=== PATIENT | male | born 1965 | race Caucasian/White ===

== ENCOUNTER 2020-01-31 21:44 | Inpatient (IN) | payer MEDICARE, SELFPAY ==
[2020-01-31 21:45] VITALS: PULSE 85; RESP 11; RESP 18; O2SAT 98
--- NOTE | 2020-01-31 21:48 | ED_ITS ---
HPI - Overdose General: Chief Complaint: Overdose Stated Complaint: unresponsive Time Seen by Provider: 01/31/20 21:47 History of Present Illness: HPI Narrative: 54-year-old male presents the emergency room he is intubated upon arrival EMS reports he took a large quantity of metoprolol and possibly clonazepam prior to arrival. He had been seen earlier in the day by EMS and refused care family called again when he became more combative and poorly responsive. EMS reports initially he was somewhat combative and went into arrest they gave him atropine for severe bradycardia which she did not respond well to and then began pacing. They are unable to intubate in place and Igel on arrival he has gurgling breath sounds does not sound as if the igel is completely protecting the airway. complaint: intentional overdose Onset (ago): hour(s) Timing confirmed by: family member Review of Systems General: Reports: ROS unobtainable due to endotracheal tube and ROS unobtainable due to medical condition [facility] PFSH: Medical History Anxiety disorder BPH (benign prostatic hyperplasia) Physical Exam Const: ORIENTATION/CONSCIOUSNESS: Yes oriented to person, Yes oriented to place and Yes oriented to time HENMT: COMMON NORMALS: normocephalic, head/scalp atraumatic, hearing grossly normal bilaterally, external ears normal, EAC's normal, TM's normal bilaterally, nasal mucous membranes and turbinates normal, moist oral mucous membranes and oropharynx normal HEAD & SCALP: normocephalic and atraumatic NOSE: nasal mucous membranes and turbinates normal EXTERNAL EAR: Yes external ears normal EXTERNAL AUDITORY CANAL: EAC's normal TYMPANIC MEMBRANE: TM's normal bilaterally Neck/C-Spine: COMMON NORMALS: full ROM, no lymphadenopathy, supple and no JVD Lymph: LYMPHATIC: no lymphadenopathy noted and no lymphedema noted Resp: COMMON NORMALS: normal respiratory effort, no retractions, no use of accessory muscles and clear to auscultation bilaterally AUSCULTATION: clear to auscultation bilaterally Cardio: COMMON NORMALS: no JVD and no murmurs RATE: bradycardic RHYTHM: abnormal rhythm OTHER: Patient is paced on arrival with a heart rate in the 70s. Peripheral pulses difficult to palpate. GI: COMMON NORMALS: soft to palpation and no hepatosplenomegaly AUSCULTATION: Yes normoactive bowel sounds PALPATION: Yes soft, No tender, No guarding and Yes no hepatosplenomegaly Extremity: COMMON NORMALS: normal to inspection, normal capillary refill, no clubbing, cyanosis or edema, no calf tenderness and no pedal edema Neuro: SENSORIUM/ORIENTATION: Yes oriented to person, Yes oriented to place and Yes oriented to time Skin: COMMON NORMALS: no rashes or lesions noted GENERAL SKIN EXAM: no rashes or lesions noted Course ED course: Initially upon arrival patient was intubated we did give him succinylcholine and etomidate. Patient was given half an amp of atropine with minimal response his blood pressure at that point was 100 systolic we then noted his blood pressure continued to deteriorate. We did turn the pacer off to evaluate his underlying rhythm and he had what appeared to be a complete heart block with a very small QRS complexes. Pacer was again turned on achieve capture and heart rate went up to the 80s. For a brief time he appeared to be overdriving the pacer with a heart rate of 100. But when we turned the pacer off it was evident that his underlying rhythm appeared to be a complete heart block. He was started on levo fed and given push dose pressors of epinephrine with no significant response either in his heart rate or blood pressure. He was then changed to dopamine and epinephrine drip there was still no improvement ultrasound at the bedside showed cardiac activity with a heart rate in the 20s the pacer capture appearing on the monitor was electrical in nature but was not actually functional the heart was not actually responding to the pacer. Cardiology was consulted and came and reviewed the case. By history the patient had essentially been down for over 4-1/2 hours. Early in the process we after he was intubated we turned off the propofol to try to improve the blood pressure and he was not showing any signs of irritation or consciousness. Long discussion with cardiology and with the family and family has opted to treat with supportive cares. Patient on their direction was extubated and the IV medications stopped he bradycardia down into the 30s and his oxygen saturations decreased into the low 80s. He persisted at this condition for an extended period of time and it was decided to place patient in observation for supportive cares in a more private room with the family could be with him. They were agreeable to this discussed Dr. Malin and she will admit the patient. Vital Signs: Vital signs: Vital Signs Temperature 97.8 F 02/02/20 16:04 Pulse Rate 76 02/02/20 13:21 Respiratory Rate 14 02/02/20 16:04 Blood Pressure 122/68 02/02/20 16:04 Pulse Oximetry 98 02/02/20 16:04 MDM - Overdose Lab Data: Labs: Lab Results 01/31/20 01/31/20 01/31/20 Range/Units 21:49 21:49 21:49 WBC 11.9 H (4.0-10.0) 10^3/ uL RBC 3.66 L (4.1-5.3) 10^6/u L Hgb 12.5 (11.7-16.6) g/dL Hct 35.1 L (42.0-52.0) % MCV 95.9 H (80-94) fL MCH 34.2 H (28.0-34.0) pg MCHC 35.6 (30.0-36.0) g/dL RDW 11.6 L (12.1-15.1) % Plt Count 237 (130-400) 10^3/c mm MPV 10.0 (7.4-10.4) fL Neut % (Auto) 75.5 % Lymph % (Auto) 15.5 % [place] % (Auto) 7.3 % Eos % (Auto) 0.3 % Baso % (Auto) 0.4 % Neut # (Auto) 9.0 H (1.8-7.7) 10^3/u L Lymph # (Auto) 1.8 (0.8-4.8) 10^3/u L [place] # (Auto) 0.9 (0.2-0.9) 10^3/u L Eos # (Auto) 0.0 (0.0-0.8) 10^3/u L Baso # (Auto) 0.1 (0.0-0.1) 10^3/u L Nucleated RBC % (a uto) 0 % Nucleated RBCs # 0.0 /100WBC PT (10.5-13.3) SECO NDS INR (0.8-1.2) Specimen Type Sample Site ABG pH (7.35-7.45) ABG pCO2 (35-45) mmHg ABG pO2 (80.0-100.0) mmH g ABG HCO3 (22-26) mmol/L ABG Base Excess (-2.0-2.0) mmol/ L Bashir Test Hematocrit (42-52) % O2 Delivery Device O2 Liters/Min % Vp Client Services ID Sodium 121 L (136-145) mmol/L Potassium 4.2 (3.5-5.1) mmol/L Chloride 81 L (98-107) mmol/L Carbon Dioxide 24 (22-29) mmol/L Anion Gap 20.2 H (5-19) BUN 24 H (6-20) mg/dL Creatinine 2.8 H (0.7-1.2) mg/dL GFR Calculation 23.6 L (90-130) mL/min Glucose 143 H (65-115) mg/dL Calculated Osmolal ity 251 L (285-295) mOsm/k g Calcium 9.3 (8.5-10.5) mg/dL Total Bilirubin 0.2 (0.15-1.2) mg/dL AST 32 (0-40) U/L ALT 18 (0-41) U/L Alkaline Phosphata se 68 (40-130) IU/L Troponin T Baselin e 21 H (0-15) ng/mL Troponin T 120 Min bois [place]te (0-15) ng/mL Delta Troponin T (0-10) ABS# Total Protein 6.0 L (6.6-8.7) g/dL Albumin 3.6 (3.5-5.2) g/dL Globulin 2.4 (1.3-4.6) g/dL TSH 1.15 (0.27-4.20) uIU/ mL Salicylates < 0.3 L (3-10) mg/dL Acetaminophen < 5.0 L (10-30) ug/mL Ethyl Alcohol < 10 (0-10) mg/dL 01/31/20 02/01/20 02/01/20 Range/Units 21:49 04:50 05:30 WBC 18.3 H (4.0-10.0) 10^3/ uL RBC 4.18 (4.1-5.3) 10^6/u L Hgb 14.0 (11.7-16.6) g/dL Hct 40.3 L (42.0-52.0) % MCV 96.4 H (80-94) fL MCH 33.5 (28.0-34.0) pg MCHC 34.7 (30.0-36.0) g/dL RDW 11.7 L (12.1-15.1) % Plt Count 226 (130-400) 10^3/c mm MPV 9.9 (7.4-10.4) fL Neut % (Auto) 82.7 % Lymph % (Auto) 10.7 % [place] % (Auto) 4.7 % Eos % (Auto) 0.1 % Baso % (Auto) 0.4 % Neut # (Auto) 15.1 H (1.8-7.7) 10^3/u L Lymph # (Auto) 2.0 (0.8-4.8) 10^3/u L [place] # (Auto) 0.9 (0.2-0.9) 10^3/u L Eos # (Auto) 0.0 (0.0-0.8) 10^3/u L Baso # (Auto) 0.1 (0.0-0.1) 10^3/u L Nucleated RBC % (a uto) 0 % Nucleated RBCs # 0.0 /100WBC PT 11.70 (10.5-13.3) SECO NDS INR 0.86 (0.8-1.2) Specimen Type Arterial Sample Site Brachial, left ABG pH 7.37 (7.35-7.45) ABG pCO2 35.4 (35-45) mmHg ABG pO2 89.9 (80.0-100.0) mmH g ABG HCO3 20.2 L (22-26) mmol/L ABG Base Excess -4.5 L (-2.0-2.0) mmol/ L Bashir Test Pos Hematocrit 39.6 L (42-52) % O2 Delivery Device Nc O2 Liters/Min 3.0 % Vp Client Services ID [email or web address] Sodium (136-145) mmol/L Potassium (3.5-5.1) mmol/L Chloride (98-107) mmol/L Carbon Dioxide (22-29) mmol/L Anion Gap (5-19) BUN (6-20) mg/dL Creatinine (0.7-1.2) mg/dL GFR Calculation (90-130) mL/min Glucose (65-115) mg/dL Calculated Osmolal ity (285-295) mOsm/k g Calcium (8.5-10.5) mg/dL Total Bilirubin (0.15-1.2) mg/dL AST (0-40) U/L ALT (0-41) U/L Alkaline Phosphata se (40-130) IU/L Troponin T Baselin e (0-15) ng/mL Troponin T 120 Min bois [place]te (0-15) ng/mL Delta Troponin T (0-10) ABS# Total Protein (6.6-8.7) g/dL Albumin (3.5-5.2) g/dL Globulin (1.3-4.6) g/dL TSH (0.27-4.20) uIU/ mL Salicylates (3-10) mg/dL Acetaminophen (10-30) ug/mL Ethyl Alcohol (0-10) mg/dL 02/01/20 02/01/20 02/01/20 Range/Units 05:30 05:30 07:26 WBC (4.0-10.0) 10^3/ uL RBC (4.1-5.3) 10^6/u L Hgb (11.7-16.6) g/dL Hct (42.0-52.0) % MCV (80-94) fL MCH (28.0-34.0) pg MCHC (30.0-36.0) g/dL RDW (12.1-15.1) % Plt Count (130-400) 10^3/c mm MPV (7.4-10.4) fL Neut % (Auto) % Lymph % (Auto) % [place] % (Auto) % Eos % (Auto) % Baso % (Auto) % Neut # (Auto) (1.8-7.7) 10^3/u L Lymph # (Auto) (0.8-4.8) 10^3/u L [place] # (Auto) (0.2-0.9) 10^3/u L Eos # (Auto) (0.0-0.8) 10^3/u L Baso # (Auto) (0.0-0.1) 10^3/u L Nucleated RBC % (a uto) % Nucleated RBCs # /100WBC PT (10.5-13.3) SECO NDS INR (0.8-1.2) Specimen Type Sample Site ABG pH (7.35-7.45) ABG pCO2 (35-45) mmHg ABG pO2 (80.0-100.0) mmH g ABG HCO3 (22-26) mmol/L ABG Base Excess (-2.0-2.0) mmol/ L Bashir Test Hematocrit (42-52) % O2 Delivery Device O2 Liters/Min % Vp Client Services ID Sodium 128 L (136-145) mmol/L Potassium 3.7 (3.5-5.1) mmol/L Chloride 89 L (98-107) mmol/L Carbon Dioxide 21 L (22-29) mmol/L Anion Gap 21.7 H (5-19) BUN 25 H (6-20) mg/dL Creatinine 3.2 H (0.7-1.2) mg/dL GFR Calculation 20.2 L (90-130) mL/min Glucose 117 H (65-115) mg/dL Calculated Osmolal ity 264 L (285-295) mOsm/k g Calcium 8.9 (8.5-10.5) mg/dL Total Bilirubin 0.3 (0.15-1.2) mg/dL AST 37 (0-40) U/L ALT 21 (0-41) U/L Alkaline Phosphata se 77 (40-130) IU/L Troponin T Baselin e 22 H (0-15) ng/mL Troponin T 120 Min bois [place]te 18.30 H (0-15) ng/mL Delta Troponin T -3.70 L (0-10) ABS# Total Protein 6.8 (6.6-8.7) g/dL Albumin 3.4 L (3.5-5.2) g/dL Globulin 3.4 (1.3-4.6) g/dL TSH 0.89 (0.27-4.20) uIU/ mL Salicylates (3-10) mg/dL Acetaminophen (10-30) ug/mL Ethyl Alcohol (0-10) mg/dL Discharge Plan Discharge Patient Disposition: Admitted As Inpatient Admit Provider: Destiny Malin Clinical Impression: Suicide attempt by multiple drug overdose, Complete heart block, Anoxic brain injury Condition: Stable Discharge Orders: Discharge Order (Routine); Ordered 02/02/20 Ordered By: Chayo Serrano Referrals: Deanna,Vinh, KITCHEN UTILITY ASSOCIATE [Referring] - 4-7 days (Friday February 07, 2020 at 9:45am Post hospital discharge follow up. Will need follow up CBC, BMP) Discharge Diet: Regular Discharge Activity: Resume usual activity Patient Instructions: Potassium Chloride (By mouth), Thiamine (Vitamin B-1) (By mouth), Amoxicillin/Clavulanate Potassium (By mouth), Midodrine (By mouth), Vitamin D (By mouth) Discharge Date/Time: 02/01/20 02:10 Coding Level of Care Code ED Pediatric Physical Therapy Assistant for [facility]
--- NOTE | 2020-01-31 21:50 | XR_ITS ---
WS: [id number] XR chest 1V portable [id number] REASON FOR EXAM: dyspnea/cough FINDINGS: Endotracheal tube seen in good position. A feeding tube is seen in the stomach good position. There is a nodular density in the right upper chest. The remaining lung mata are clear with no pneumonia or pulmonary edema or pleural effusion. The hilum is and apices normal. Nodular density in the right upper lung. XR/XR chest 1V portable [id number] IMPRESSION: Nodule in the right upper lung. Feeding tube in the stomach good position Normal position endotracheal tube.
[2020-01-31 21:51] VITALS: PULSE 70; RESP 17
[2020-01-31 22:07] LABS: Basophils # 0.1 10^3/uL (0.0-0.1); Basophils % 0.4 %; Eosinophils % 0.3 %; Hematocrit 35.1 % (42.0-52.0); Hemoglobin 12.5 g/dL (11.7-16.6); Lymphocytes # 1.8 10^3/uL (0.8-4.8); Lymphocytes % 15.5 %; Mean Corpuscular HGB Conc 35.6 g/dL (30.0-36.0); Mean Corpuscular Hemoglobin 34.2 pg (28.0-34.0); Mean Corpuscular Volume 95.9 fL (80-94); Monocytes # 0.9 10^3/uL (0.2-0.9); Monocytes % 7.3 %; Neutrophils % 75.5 %; Nucleated Red Blood Cells % 0 %; Platelet Count 237 10^3/cmm (130-400); Red Blood Count 3.66 10^6/uL (4.1-5.3); Red Cell Distribution Width 11.6 % (12.1-15.1); White Blood Count 11.9 10^3/uL (4.0-10.0)
[2020-01-31 22:20] LABS: Troponin(5th) Baseline 21 ng/mL (0-15)
[2020-01-31] MEDS: succinylcholine 20 mg/mL SDV 10mL 100 MG IVP (22:20)
[2020-01-31] MEDS: sodium chloride 0.9% 1,000 ML 999 ML IV (22:22)
[2020-01-31] MEDS: atropine 0.1 mg/mL Syr 10 mL 1 MG (22:22)
[2020-01-31] MEDS: ondansetron 2 mg/ML SDV 2 mL 4 MG IVP (22:23)
[2020-01-31] MEDS: clindamycin 900 MG/50 ML PREMIX 100 MG IV (22:28)
[2020-01-31 22:30] LABS: Alanine Aminotransferase 18 U/L (0-41); Albumin Level 3.6 g/dL (3.5-5.2); Alkaline Phosphatase 68 IU/L (40-130); Anion Gap 20.2 (5-19); Blood Urea Nitrogen 24 mg/dL (6-20); Calcium 9.3 mg/dL (8.5-10.5); Carbon Dioxide 24 mmol/L (22-29); Chloride 81 mmol/L (98-107); Globulin 2.4 g/dL (1.3-4.6); Glomerular Filtration Rate 23.6 mL/min (90-130); Glucose 143 mg/dL (65-115); Osmolality Calculated 251 mOsm/kg (285-295); Potassium 4.2 mmol/L (3.5-5.1); Sodium 121 mmol/L (136-145); Thyroid Stimulating Hormone 1.15 uIU/mL (0.27-4.20); Total Bilirubin 0.2 mg/dL (0.15-1.2)
[2020-01-31 22:31] LABS: Acetaminophen < 5.0 ug/mL (10-30); Alcohol Level < 10 mg/dL (0-10); Aspartate Amino Transferase 32 U/L (0-40); Salicylate < 0.3 mg/dL (3-10)
[2020-01-31 22:38] VITALS: BP 101/22; PULSE 78; RESP 22; O2SAT 100
[2020-01-31 22:40] LABS: INR 0.86 (0.8-1.2)
--- NOTE | 2020-01-31 23:11 | PM.CONSULT ---
Providers/Reason For Consult Consulting Physican/Specialty*: CARDIOLOGY Reason for Consult*: Cardiogenic shock History of Present Illness History of Present Illness Critical care note Koko Flores is a 54 year old male history of htn, parasuicide, who presents after intentional drug overdose. According to the information available, patient was evaluated in the field by EMS at around 722 pm who were called by family, who found the patient unresponsive, , and was noted to be bradycardic, with severe hypotension. On furtehr questioning it appears, that patient was at his home when, he consumed alcohol, and took medications which he called his mother about. He then drove over to his parents place of residence, and stopped breathing. CPR wa started by family member and EMS was activated. EMS placed an airway, and brought over to the emergency room for further eval. Transcutaneous pacer was placed and patient was brought to ER at [facility], and was intubated . At the ER, patient was started on IV epinephrine, dopamine with automatic cuff pressures consistently less then 50 . IV atropine , and glucogon was also given with no response cardiology consultation was requested for temporary pacemaker placement Review of Systems General: Reports: ROS unobtainable due to endotracheal tube Meds/Allergies Home Medications and Allergies Home Medications Medication Instructions Recorded Confirmed Type cetirizine 10 mg PO DAILY 02/01/20 02/01/20 History clonazepam 0.5 mg PO BID 02/01/20 02/01/20 History finasteride 5 mg PO DAILY 02/01/20 02/01/20 History montelukast 10 mg PO DAILY 02/01/20 02/01/20 History tizanidine 4 mg PO TID PRN 02/01/20 02/01/20 History amoxicillin-pot clavulanate 1 tab PO BID 7 Days #14 tab 02/02/20 Rx [Augmentin] midodrine 5 mg PO TID 30 Days #90 tab 02/02/20 Rx multivitamin with folic acid 1 tab PO DAILY 30 Days #30 tab 02/02/20 Rx [Thera] potassium chloride 20 meq PO BID #30 tab 02/02/20 Rx thiamine mononitrate (vit B1) 100 mg PO DAILY 30 Days #30 tab 02/02/20 Rx [Vitamin B-1 (mononitrate)] Allergies Allergy/AdvReac Type Severity Reaction Status Date / Time Unable to Assess Allergy Verified 01/31/20 23:35 PFSH Acute PFSH: Medical History Anxiety disorder BPH (benign prostatic hyperplasia) Vitals/I&O/Wt Last Vital Signs Pulse 78 01/31/20 22:38 Resp 22 H 01/31/20 22:38 BP not palpable 01/31/20 22:38 Pulse Ox 100 intubated 01/31/20 22:38 Weight last 48 hrs Weight 200 lb Physical Exam HENMT: COMMON NORMALS: normocephalic, head/scalp atraumatic, nasal mucous membranes and turbinates normal and oropharynx normal HEAD & SCALP: normocephalic and atraumatic NOSE: nasal mucous membranes and turbinates normal Neck/C-Spine: COMMON NORMALS: no JVD Chest: COMMONS NORMALS: inspection of chest normal Resp: COMMON NORMALS: normal respiratory effort, no use of accessory muscles and clear to auscultation bilaterally AUSCULTATION: clear to auscultation bilaterally Cardio: COMMON NORMALS: no JVD, S1 normal heart sound, S2 normal heart sound, no gallops and no murmurs JUGULAR VENOUS DISTENTION: no JVD HEART SOUNDS: S1 normal and S2 normal Urinary Catheter Management^: Stringer: Cath Placed During This Visit: yes Reason for Continuing Indwelling Catheter: Accurate Measurement of Urinary Output in Critically Ill Patients Urinary Catheter Date of Insertion: 01/31/20 Urinary Catheter Time of Insertion: 22:00 A&P Assessment and plan (1) PEA (Pulseless electrical activity): 1. Regarding current presentation, patient has been on high doses of pressors including dopamine, IV Levophed, epinephrine in spite of which his blood pressure remains less than 50 systolic. Since his initial evaluation on the field, patient has been paced transcutaneously, starting around 7:22 PM, and will this time evaluation after 10 PM, with all documented pressures during his ER visit reviewed which revealed systolics in the 40s to 50s by automatic cuff pressures, and no palpable manual pressure recordable. 2. In addition, at bedside evaluation, a cardiac echocardiogram was completed, which revealed no capture with cardiac motility with transcutaneous pacing or with his baseline rhythm. During the cardiac echocardiogram, transcutaneous output was increased to its maximum level without any electromechanical capture. 3a. In addition, patient was noted to be oliguric, appeared to be acute renal failure, with elevated creatinine, which are highly suggestive signs of hypoperfusion/hypotension involving endorgan's. 3b. At this point although a transvenous pacemaker the possibility, but based on the information available at hand, with the duration of patient current condition, with lack of capture on echocardiographic evaluation, in addition to the fact that patient has been hypotensive for over 3 hours, the chances of anoxic brain injury are thought to be extremely high. 4. This was discussed at length with Dr. Miller, and a family consultation with with the patient's family were initiated. Patient's family were given options including proceeding with aggressive management, with transvenous pacemaker placement, or to proceed with conservative management with watchful wait waiting and comfort measures. 5. After prolonged discussion, and after allowing the patient's family to consult within their group, a consensus was reached, to proceed with conservative measure comfort measures at this point. 6. Prior to initiation of above conservative measures, all attempts were made, including medications, pharmacologic and nonpharmacologic to assist to get the patient. Status: Acute Code(s): I46.9 - Cardiac arrest, cause unspecified (2) Drug overdose: Status: Acute Qualifiers: Injury intent: intentional self-harm Code(s): T50.901A - Poisoning by unspecified drugs, medicaments and biological substances, accidental (unintentional), initial encounter (3) Acute renal failure: Status: Acute Code(s): N17.9 - Acute kidney failure, unspecified Coding Level of Care Code Acute Air Battle Manager for [facility] Fwd Exam Detailed Diagnoses PEA (Pulseless electrical activity) I46.9 Drug overdose T50.901A Injury intent: intentional self-harm Acute renal failure N17.9
--- NOTE | 2020-01-31 23:19 | PC.NURSE ---
Family at bedside
[2020-01-31] MEDS: DOPamine drip 400 MG/250 ML PREMIX 17 MG IV (23:36)
[2020-01-31 23:41] VITALS: BP 49/27; PULSE 35; RESP 8; O2SAT 88
[2020-01-31 23:57] VITALS: BP 44/28; PULSE 34; RESP 8; O2SAT 82
[2020-02-01] VITALS (61 sets, daily range): BP systolic 50–95; BP diastolic 30–74; PULSE 33–67; RESP 4–22; TEMP 36.7–37.2; O2SAT 74–100; BMI 26.7
--- NOTE | 2020-02-01 01:53 | PM.HP ---
Providers/Chief Complaint Admitting Physician: Destiny Malin MD Chief Complaint: unresponsive History of Present Illness Koko Flores is a 54 year old male with PMH HTN brought to the Er by EMS after being found down at home after consuming multiple pills of atenolol at home in a suicide attempt. Per history obtained from discussion with Er, He was found to be unresponsive, bradycardic, hypotensive by EMS and brought to ER after application of transcutaneous pacer. Intubated upon arrival. recieved glucagon, dopamine and multiple rounds of atropine alongside transcutanoeus pacing but continued to be bradycardic. Intervention cardiology was consulted for possible placement of temporary transvenous pacer. After discussion between family and ER team, it was decided to withdraw care given overall poor prognosis based on prolonged lack of cardiac activity with transcutaneous pacing, lack of cardiac activity on bedside echo, and lack of adequate systolic blood pressure , in addition to lack of response to medications, for over 3 hrs and high likelihood of anoxic brain injury. Patient has since been extubated with goals of comfot care. Hospitalist team is requested to admit to inpatient service for comfort care measures. At time of my arrival, BP 58/38, HR 33, 02 sat 83, RR 5-8 with agonal breaths. Review of Systems General: Reports: ROS unobtainable due to medical condition Medications/Allergies Home Medications Medication Instructions Recorded Confirmed Last Taken Type No Known Home Medications 01/31/20 01/31/20 Unknown History Allergies Allergy/AdvReac Type Severity Reaction Status Date / Time Unable to Assess Allergy Verified 01/31/20 23:35 Vitals/I&O/Wt Last Vital Signs Pulse 33 L 02/01/20 01:20 Resp 12 02/01/20 01:20 BP 58/38 02/01/20 01:20 Pulse Ox 83 L 02/01/20 01:00 Weight last 48 hrs Weight 90.718 kg Physical Exam Narrative: EXAM NARRATIVE: GEN: obtunded, no meaningful neuro response HEENT: NC/AT CVS: S1S2 N RS: CTA B/L, poor inspiratory effort Abd: Soft, non distended CAD DESIGNER DRAFTER: obtunded Urinary Catheter Management^: Stringer: Cath Placed During This Visit: yes Reason for Continuing Indwelling Catheter: Accurate Measurement of Urinary Output in Critically Ill Patients Urinary Catheter Date of Insertion: 01/31/20 Urinary Catheter Time of Insertion: 22:00 Data : 01/31/20 21:49 01/31/20 21:49 A&P Assessment and plan (1) Suicide attempt by multiple drug overdose: Status: Acute Code(s): T50.912A - Poisoning by multiple unspecified drugs, medicaments and biological substances, intentional self-harm, initial encounter (2) Complete heart block: Status: Acute Code(s): I44.2 - Atrioventricular block, complete (3) Anoxic brain injury: Status: Acute Code(s): G93.1 - Anoxic brain damage, not elsewhere classified (4) Cardiogenic shock: Status: Acute Code(s): R57.0 - Cardiogenic shock (5) Acute renal failure: Status: Acute Code(s): N17.9 - Acute kidney failure, unspecified Additional A&P Information admit to med/surg for comfort care measures prn morphine and ativan as needed No vitals check, stop all invasive measures DNR/DNI Attestations Medical Necessity Statement*: comfort care, anticipate less than 2 midnight survival Coding Level of Care Code Acute Investigation Lieutenant for [facility] Fwd Diagnoses Suicide attempt by multiple drug overdose T50.912A Complete heart block I44.2 Anoxic brain injury G93.1 Cardiogenic shock R57.0 Acute renal failure N17.9
--- NOTE | 2020-02-01 04:10 | ECG_ITS ---
Measurements Intervals [place] Rate: 33 P: ME: 0 QRS: 60 QRSD: 115 T: 62 QT: 592 QTc: 441 SUPRAVENTRICULAR BRADYCARDIA-possibly junctional MODERATE INTRAVENTRICULAR CONDUCTION DELAY [110+ ms QRS DURATION] PROLONGED QT INTERVAL No previous ECG available for comparison Electronically Signed On 02-04-2020 14:49:51 CDT by Rajesh Hale M.D. [email or web address]
--- NOTE | 2020-02-01 04:52 | PC.NURSE ---
0448 pt rcvd from med surg via bed . pt on cm hr 33 noted complete block per dr. lamb who is at bedside shortly after arrival. systolic 50s order for dopamine gtt at this time. medications per jan. pt continues to be verbal and bradycardiac. pt noted to have increasing st elevation , dr lamb aware.
[2020-02-01 05:02] LABS: ABG PCO2 35.4 mmHg (35-45); ABG PH Result 7.37 (7.35-7.45); Arterial Blood Gas Hematocrit 39.6 % (42-52); Base Excess ABG -4.5 mmol/L (-2.0-2.0); Blood Gas Allen Test Pos; Blood Gas Sample Site Brachial, left; Blood Gas Sample Type Arterial; HCO3 ABG 20.2 mmol/L (22-26); Oxygen Device NC; PO2 ABG 89.9 mmHg (80.0-100.0)
[2020-02-01] MEDS: DOPamine drip 400 MG/250 ML PREMIX 17 MG IV (05:04)
[2020-02-01] MEDS: DOPamine drip 400 MG/250 ML PREMIX 34 MG IV ×2 (05:15→11:41)
--- NOTE | 2020-02-01 05:27 | USCV_ITS ---
Koko Flores Age: 54 Gender: M : 1965 Exam Date: 02/01/2020 12:16 Ordering Phys: Destiny Malin MD Technologist: Radha Melgar Exam Location: [facility] – [place] Indication: POST CARDIAC ARREST, EST EF BP: 76 / 37 HR: 58 Rhythm: Sinus Technical Quality: Adequate MEASUREMENTS (Male / Female) Normal Values 2D ECHO LV Chamber Size 3.0 cm RV Chamber Size 2.1 cm LVOT Diameter 2.0 cm LV Ejection Fraction MOD 2C 47.5 % LV Ejection Fraction 2C AL 47.1 % LA Width 3.0 cm LA Height 4.6 cm RA Width 3.1 cm RA Height 4.3 cm DOPPLER AV Peak Velocity 160.0 cm/s LVOT Peak Velocity 134.0 cm/s AV Area Cont Eq vti 3.8 cm squared AV Area Cont Eq pk 2.7 cm squared MV Area PHT 2.8 cm squared Mitral E to A Ratio 1.2 MV E' Velocity 15.0 cm/s Mitral E to MV E' Ratio 6.6 Mitral E to LV E' Lateral Ratio 6.0 Mitral E to LV E' Septal Ratio 7.3 TR Peak Velocity 139.0 cm/s TR Peak Gradient 7.7 mmHg TV Peak E Velocity 63.0 cm/s Right Atrial Pressure 3.0 mmHg Pulmonary Artery Systolic Pressu 10.7 mmHg FINDINGS Left Ventricle Normal left ventricular size, systolic function and wall thickness, with no regional wall motion abnormalities. EF 75 % Normal left ventricular wall thickness. Normal diastolic filling pattern. Right Ventricle The right ventricle is normal in size and function. Right Atrium The right atrium is normal in size. Left Atrium The left atrium is normal in size. Mitral Valve Structurally normal mitral valve without significant stenosis or prolapse. There is no mitral regurgitation. Aortic Valve Structurally normal aortic valve without significant sclerosis or stenosis. There is no aortic regurgitation. Tricuspid Valve Structurally normal tricuspid valve without significant stenosis or regurgitation. Pulmonary artery systolic pressure is normal. Pulmonic Valve Structurally normal pulmonic valve without significant stenosis. There is no pulmonic regurgitation. Pericardium Normal pericardium without effusion. Aorta Normal ascending aorta dimension. CONCLUSIONS Hyperdynamic LV function No pericardial effusion No significant valvular stenosis, regurgitation Finesse Molina MD (Electronically Signed) Final Date: 01 February 2020 12:40 S
--- NOTE | 2020-02-01 05:28 | PM.EVENT ---
Event Note Event Note: Patient was earlier transferred to floors with comfort care protocol due to reasons cited in the admission note. At ~4:15 am, received a call that the patient was now awake, mentating. On assessmnent he was still bradycardic with HR 34 and SBP 60-70 on palpation. He was however able to correctly state his name, age, , tell me his mother's and brother's names, his correct address and the fact that he is at [facility]. GOC were discussed again in light of patient's change in mental status and he was transferred to ICU. Dopamine was started, patient converted to sinus rhythm @48bpm with BP 70/40 after being on dopamine for ~20minutes. Levophed additionally started at this time. Cardiology was consulted again. Since he is now converted to sinus rhythm from CHB, transcutaneous pacer deferred for now. He remains on 2 pressors. CV echocardiogram ordered. There is no urine output till now. ABG ordered. Empiric Zosyn for possible aspiration. Stat labs incl troponin. Additional history obtained from mother, patient had called her earlier this morning and reported that he had been drinking and having bodyache for which he took multiple pain medication and BP medication. Review of his pill box shows propranolol, lisinopril, tizanidine, clonazepam. No opiates noted. It is not know which pills he took as he lives by himself. he then drove to his mother;s house few minutes away and laid on the couch. he was then noted to be apneic and his brother in law gave him CPR for a few minutes. EMS then arrived, had LMA placed, patient possibly aspirated as copious secretions were suctioned from ETT. Rest events as noted in H&P. Per mom, initially she denies any suicidal ideation on his part but now states could not be sure of his intentions as he has been having legal trouble recently. 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
[2020-02-01 05:34] LABS: Basophils # 0.1 10^3/uL (0.0-0.1); Basophils % 0.4 %; Eosinophils % 0.1 %; Hematocrit 40.3 % (42.0-52.0); Lymphocytes % 10.7 %; Mean Corpuscular HGB Conc 34.7 g/dL (30.0-36.0); Mean Corpuscular Hemoglobin 33.5 pg (28.0-34.0); Mean Corpuscular Volume 96.4 fL (80-94); Mean Platelet Volume 9.9 fL (7.4-10.4); Monocytes # 0.9 10^3/uL (0.2-0.9); Monocytes % 4.7 %; Neutrophils # 15.1 10^3/uL (1.8-7.7); Neutrophils % 82.7 %; Nucleated Red Blood Cells % 0 %; Platelet Count 226 10^3/cmm (130-400); Red Blood Count 4.18 10^6/uL (4.1-5.3); Red Cell Distribution Width 11.7 % (12.1-15.1); White Blood Count 18.3 10^3/uL (4.0-10.0)
[2020-02-01 06:00] LABS: Alanine Aminotransferase 21 U/L (0-41); Albumin Level 3.4 g/dL (3.5-5.2); Alkaline Phosphatase 77 IU/L (40-130); Anion Gap 21.7 (5-19); Blood Urea Nitrogen 25 mg/dL (6-20); Calcium 8.9 mg/dL (8.5-10.5); Carbon Dioxide 21 mmol/L (22-29); Chloride 89 mmol/L (98-107); Globulin 3.4 g/dL (1.3-4.6); Glomerular Filtration Rate 20.2 mL/min (90-130); Glucose 117 mg/dL (65-115); Osmolality Calculated 264 mOsm/kg (285-295); Potassium 3.7 mmol/L (3.5-5.1); Sodium 128 mmol/L (136-145); Thyroid Stimulating Hormone 0.89 uIU/mL (0.27-4.20); Total Bilirubin 0.3 mg/dL (0.15-1.2); Total Protein 6.8 g/dL (6.6-8.7)
--- NOTE | 2020-02-01 06:02 | ECG_ITS ---
Measurements Intervals [place] Rate: 44 P: AL: 0 QRS: 60 QRSD: 99 T: 68 QT: 529 QTc: 456 SUPRAVENTRICULAR BRADYCARDIA PROLONGED QT INTERVAL No previous ECG available for comparison Electronically Signed On 02-02-2020 12:43:13 CDT by Jamel Molina [id number]
--- NOTE | 2020-02-01 06:09 | PC.NURSE ---
Pt transferred to ICU: Pt woke at approx. and began to speak, drinking water and conversing with family at the bedside. VS taken, Dr. Malin called and came to the room to assess the pt. Pt BP not audible with manual cuff, HR in the low 30's when connected to the zoll machine. Orders to transfer to ICU, report called and pt taken down.
--- NOTE | 2020-02-01 06:20 | P.PN_ITS ---
Subjective Subjective: Interval history: Evaluated this morning-Called by hospitalist stating that patient awake this am. Denies any chest pain , awake appears to be oriented Heart rate improved, in the 60;s Remains hypotensive No fever, chills Vitals/I&O/Wt Last Vital Signs Pulse 62 02/01/20 06:00 Resp 12 02/01/20 06:00 BP 83/35 02/01/20 06:00 Pulse Ox 74 L 02/01/20 06:00 01/31/20 01/31/20 02/01/20 14:59 22:59 06:59 Intake Total 92.933 / 92.933 Balance 92.933 / 92.933 Weight last 48 hrs Weight 200 lb Physical Exam HENMT: COMMON NORMALS: normocephalic, head/scalp atraumatic, nasal mucous membranes and turbinates normal and oropharynx normal HEAD & SCALP: normocephalic and atraumatic NOSE: nasal mucous membranes and turbinates normal Neck/C-Spine: COMMON NORMALS: full ROM and no JVD Resp: COMMON NORMALS: normal respiratory effort, no use of accessory muscles and clear to auscultation bilaterally AUSCULTATION: clear to auscultation bilaterally Cardio: COMMON NORMALS: no JVD, S1 normal heart sound, S2 normal heart sound, no gallops and no murmurs JUGULAR VENOUS DISTENTION: no JVD HEART SOUNDS: S1 normal and S2 normal Urinary Catheter Management^: Stringer: Cath Placed During This Visit: yes Reason for Continuing Indwelling Catheter: Accurate Measurement of Urinary Output in Critically Ill Patients Urinary Catheter Date of Insertion: 01/31/20 Urinary Catheter Time of Insertion: 22:00 Data : 02/02/20 03:35 02/02/20 03:35 A&P Assessment and plan (1) Suicide attempt by multiple drug overdose: Status: Acute Qualifiers: Encounter type: initial encounter Qualified Code(s): T50.912A - Poisoning by multiple unspecified drugs, medicaments and biological substances, intentional self-harm, initial encounter Code(s): T50.912A - Poisoning by multiple unspecified drugs, medicaments and biological substances, intentional self-harm, initial encounter (2) JOVITA (acute kidney injury): Status: Acute Code(s): N17.9 - Acute kidney failure, unspecified (3) Parasuicide: Status: Acute Code(s): X83.8XXA - Intentional self-harm by other specified means, initial encounter (4) Anxiety disorder: Status: Acute Code(s): F41.9 - Anxiety disorder, unspecified Additional A&P Information 1. Transfer to ICU 2. IV fluid resuscitation 3. Start IV dopamine, epinephrine 4 Consider arterial line placement 5 Monitor urine output 6 Temporary pacemaker placement if high degree AV block, 7 Evaluate for reasons for hypotension 8 Check CXR 9 Agree IV abx on empiric basis. 10 Alcohol withdrawal orders Attestations Medical Necessity Statement*: Shock, Para-suicide Coding Level of Care Code Acute Patient Observation Assistant for Chg Fwd Exam Expanded Problem Focused Diagnoses Suicide attempt by multiple drug overdose T50.916C Encounter type: initial encounter JOVITA (acute kidney injury) N17.9 Parasuicide X83.8XXA Anxiety disorder F41.9
[2020-02-01 06:24] LABS: Troponin(5th) Baseline 22 ng/mL (0-15)
[2020-02-01 06:28] LABS: Aspartate Amino Transferase 37 U/L (0-40)
[2020-02-01] MEDS: sodium chloride 0.9% 1,000 ML 75 ML IV ×2 (06:32→21:41)
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
--- NOTE | 2020-02-01 08:02 | ECG_ITS ---
Measurements Intervals [place] Rate: 58 P: 71 [place]: 165 QRS: 45 QRSD: 86 T: 64 QT: 418 QTc: 413 SINUS BRADYCARDIA INTERPRETATION BASED ON A DEFAULT AGE OF 40 YEARS No previous ECG available for comparison Electronically Signed On 02-02-2020 12:47:50 CDT by Jamel Molina [id number]
[2020-02-01] MEDS: lactated ringers 1,000 ML 150 ML IV ×2 (08:46→16:18)
[2020-02-01] MEDS: EPINEPHrine 2.5 MG in sodium chloride 0.9% 250 ML 60.6 MG IV (09:30)
[2020-02-01] MEDS: folic acid 1 mg Tablet PO (10:44)
[2020-02-01] MEDS: thiamine 100 mg Tablet PO (10:44)
[2020-02-01] MEDS: multivitamin therapeutic Tablet 1 TAB PO (10:45)
--- NOTE | 2020-02-01 11:04 | PC.NURSE ---
1000 Pt pulled out left wrist IV line. Stated it hurt. New start in right hand. Pt did not tolerate well. Pt yelled and pulled hand.
--- NOTE | 2020-02-01 11:12 | PC.NURSE ---
Addendum entered by Martha Summers RN 02/01/20 15:42: Pt adamantly refusing any new IV meds until he speaks to doctor. Original Note: 1030 Pt IV cardiac meds not compatible. Third line started. Pt did not tolerate IV start well. Did not tolerate IVP through new line. Dr Edison Molina on floor. Informed. Advised to call Hospitalist. Holding Zosyn until orders received.
--- NOTE | 2020-02-01 11:28 | PC.NURSE ---
3064 Dr Domingo contacted about pt's IV lines, pt's lack of cooperation, and late Zosyn administration. Dr Domingo stated she would discuss with Dr Sifuentes and Zosyn may be held until notified.
--- NOTE | 2020-02-01 11:38 | PC.NURSE ---
0930 Another bag of Dopamine scanned and administered along with Epi but scan did not save.
--- NOTE | 2020-02-01 12:02 | ECG_ITS ---
Measurements Intervals [place] Rate: 52 P: 73 [place]: 155 QRS: 49 QRSD: 93 T: 63 QT: 447 QTc: 416 SINUS BRADYCARDIA No previous ECG available for comparison Electronically Signed On 02-02-2020 12:46:54 CDT by Jamel Molina [id number]
[2020-02-01] MEDS: EPINEPHrine 2.5 MG in sodium chloride 0.9% 250 ML 36.4 MG IV (12:08)
--- NOTE | 2020-02-01 13:44 | PM.PN ---
Subjective Subjective: Interval history: Chart reviewed, remains on dopamine and epinephrine as well as LR. HR better though still bradycardic. Has Stringer catheter in place, has about 2 L output. Patient alert and oriented x 3, complaining about discomfort at IV access site on R hand though appears to be functioning appropriately. On Dopamine @ 14 mcg/kg/min and Epi @ 5 mcg/min, LR @ 150 mL/hr. Does not remember much about what happened before ER arrival but does recall having pain and taking ibuprofen and Atenolol, cannot recall how much, denies wanting to harm himself. Briefly spoke with mother and her , denied prior suicide attempts, patient has been under a significant amount of stress and has been more depressed lately. Case discussed with Dr. Sifuentes, recommended addition of midodrine to wean off pressor support. Will start on diet. Psych Dr. Ayers will see patient tomorrow. Medications: Reviewed: Yes Medication Review Details: Active Medications Generic Name Dose Route Start Last Admin Trade Name Freq PRN Reason Stop Dose Admin Albuterol Sulfate 2 puff 02/01/20 11:41 Ventolin INHALATION Q4H.RESPIRATORY P RN SHORTNESS OF DIOR TH Folic Acid 1 mg 02/01/20 09:00 02/01/20 10:44 Folic Acid PO 1 mg DAILY DANIELLE Administration Dopamine HCl/Dextr ose 400 mg in 250 mls @ 17.01 mls/hr 02/01/20 05:15 02/01/20 11:41 Intropin Drip IV 10 mcg/kg/min CONT DANIELLE 34 mls/hr Administration Protocol 5 MCG/KG/MIN Sodium Chloride 1,000 mls @ 150 m ls/hr 02/01/20 05:15 02/01/20 06:32 Sodium Chloride 0.9% IV 75 mls/hr .Q6H40M DANIELLE Administration Piperacillin Sod/T azobactam 100 mls @ 25 mls/ hr 02/01/20 08:00 Sod 3.375 gm/ So dium Chloride IV Q8H DANIELLE Protocol Epinephrine HCl 2. 5 mg/ Sodium 252.5 mls @ 0 mls /hr 02/01/20 06:45 02/01/20 12:08 Chloride IV 6 mcg/min .Q0M DANIELLE 36.4 mls/hr Administration Protocol Per Protocol Lactated Ringer's 1,000 mls @ 150 m ls/hr 02/01/20 08:15 02/01/20 08:46 Lactated Ringers IV 02/01/20 21:34 150 mls/hr .Q6H40M DANIELLE Administration Piperacillin Sod/T azobactam 50 mls @ 12.5 mls /hr 02/01/20 16:00 Sod 3.375 gm/ So dium Chloride IV Q8H DANIELLE Protocol Lanolin 1 applic 02/01/20 02:34 Lanolin Oint TOPICAL PRN PRN DRYNESS Lorazepam 0.5 mg 02/01/20 05:28 Ativan IVP Q4H PRN ANXIETY Lorazepam 2 mg 02/01/20 06:28 Ativan IVP PRN PRN WITHDRAWAL Protocol Morphine Sulfate 1 mg 02/01/20 05:25 Morphine IVP Q4H PRN SEVERE PAIN Multivitamins Ther apeutic 1 tab 02/01/20 09:00 02/01/20 10:45 Multivitamin Tab PO 1 tab DAILY DANIELLE Administration Ondansetron HCl 4 mg 02/01/20 02:06 Zofran IVP Q8H PRN vomiting, or N/V if npo Thiamine Mononitra te 100 mg 02/01/20 09:00 02/01/20 10:44 Vitamin B-1 PO 100 mg DAILY DANIELLE Administration Unable to Assess Allergy (Verified 01/31/20 23:35) Vitals/I&O/Wt Last Vital Signs Pulse 53 L 02/01/20 08:00 Resp 15 02/01/20 08:00 BP 84/59 02/01/20 08:00 Pulse Ox 100 02/01/20 06:25 01/31/20 02/01/20 02/01/20 22:59 06:59 14:59 Intake Total 1592.933 / 1592.933 378.313 / 378.313 Balance 1592.933 / 1592.933 378.313 / 378.313 Weight last 48 hrs Weight 79.832 kg Weight 90.718 kg Physical Exam Const: COMMON NORMALS: no apparent distress and oriented x3 GENERAL APPEARANCE: cooperative and comfortable ORIENTATION/CONSCIOUSNESS: Yes awake HENMT: COMMON NORMALS: normocephalic, head/scalp atraumatic, hearing grossly normal bilaterally and moist oral mucous membranes HEAD & SCALP: normocephalic and atraumatic Eye: COMMON NORMALS: PERRL, EOMs intact bilaterally and conjunctivae normal CONJUNCTIVA: Yes conjunctivae normal PUPIL: Yes PERRL Neck/C-Spine: COMMON NORMALS: full ROM GENERAL: Yes normal visual inspection and Yes trachea midline Resp: COMMON NORMALS: normal respiratory effort, no retractions, no use of accessory muscles and clear to auscultation bilaterally EFFORT & INSPECTION: Yes able to speak in complete sentences, Yes symmetric chest movement and No tachypneic AUSCULTATION: clear to auscultation bilaterally Cardio: COMMON NORMALS: regular rhythm, S1 normal heart sound, S2 normal heart sound and no murmurs RATE: bradycardic RHYTHM: regular rhythm HEART SOUNDS: S1 normal and S2 normal OTHER: -hypotensive, on Dopamine @ 14 mcg/kg/min, Epinephrine @ 5 mcg/min GI: COMMON NORMALS: normal to inspection, nondistended, normoactive bowel sounds, soft to palpation and non-tender PALPATION: Yes soft : BLADDER/KIDNEY EXAM: Yes catheter in place Catheter type (Male): urethral Extremity: COMMON NORMALS: normal to inspection, full ROM and no clubbing, cyanosis or edema; negative for no pedal edema Neuro: COMMON NORMALS: oriented x3, moves all extremities, no focal motor deficits, no sensory deficits noted and gait normal Psych: COMMON NORMALS: mental status grossly normal, thought process normal, cooperative, affect normal and speech normal SPEECH: Yes normal speech THOUGHT PROCESS: normal thought process Skin: COMMON NORMALS: no rashes or lesions noted, no jaundice, no petechiae and no mottling GENERAL SKIN EXAM: no rashes or lesions noted Urinary Catheter Management^: Stringer: Cath Placed During This Visit: yes Urethral Indwelling: Yes Reason for Continuing Indwelling Catheter: Accurate Measurement of Urinary Output in Critically Ill Patients Urinary Catheter Date of Insertion: 01/31/20 Urinary Catheter Time of Insertion: 22:00 Data : 02/01/20 05:30 02/01/20 05:30 Micro: Microbiology 01/31/20 22:25 Gram Stain - Final Sputum - Endotracheal Tube Aspirate A&P Assessment and plan (1) Suicide attempt by multiple drug overdose: -patient admitted to intentional overdose on medications with intention of self-harm to family, denied to me, noted mention of atenolol, ibuprofen specifically -Initial concern for anoxic brain injury and impending given hypotension, bradycardia, hypoxia, agonal breathing and noted lack of cardiac activity following medical management and transcutaneous pacing. At this point following discussion with patient's family and medical team patient was extubated and transition to comfort measures. Several hours later patient made some recovery and was transferred to ICU with intention to aggressively manage including pressor support -Seizure/fall/aspiration precautions; withdrawal precautions, CIWA protocol -Will need evaluation by psychiatry once medically stable -Urine tox screen negative for acetaminophen, salicylates and alcohol -One-on-one monitoring Status: Acute Qualifiers: Encounter type: initial encounter Qualified Code(s): T50.912A - Poisoning by multiple unspecified drugs, medicaments and biological substances, intentional self-harm, initial encounter Code(s): T50.912A - Poisoning by multiple unspecified drugs, medicaments and biological substances, intentional self-harm, initial encounter (2) Cardiogenic shock: -Noted lack of cardiac activity initially in the ER with expectation of impending then made recovery though is still requiring pressor support and has persistent bradycardia -Cardiology evaluation by Dr. Jesse choi -Telemetry monitoring -Has continued evidence of hypotension and bradycardia, continue to monitor vital signs closely -Echo noted with ejection fraction of 75%, no noted regional wall motion abnormalities -Troponins noted with no significant delta change -Continue IV fluid resuscitation Status: Acute Code(s): R57.0 - Cardiogenic shock (3) Acute renal failure: -Likely secondary to hypoperfusion from cardiogenic shock -No baseline labs available for review of medical record -Continue to monitor renal function closely, avoid nephrotoxins, renally dose meds -Continue IV fluid hydration -So far has been anuric, has Stringer catheter in place, now has good urine output, continue to monitor Status: Acute Qualifiers: Acute renal failure type: unspecified Qualified Code(s): N17.9 - Acute kidney failure, unspecified Code(s): N17.9 - Acute kidney failure, unspecified Additional A&P Information -Need to obtain collateral information including medical history -Currently n.p.o. As more alert, will start on diet -noted to have significant secretions during intubation process so may have element of aspiration; continue empiric Zosyn, chest x-ray noted, negative. Follow up sputum culture; Gram stain growing some gram-positive cocci in pairs. Afebrile, noted leukocytosis, continue to trend WBC -DVT ppx with SCDs -Continue ICU care due to need for pressor support, close hemodynamic and respiratory status monitoring Attestations Medical Necessity Statement*: Patient requires hospitalization for continued management of hypotension, bradycardia, currently requiring pressor support, acute renal failure. Time Spent in Patient Care: Greater than 35 minutes (>than 50% of time spent in counselling and/or direct pt care on unit). Coding Level of Care Code Acute Assistant Professor Of Criminal Justice for [facility] Fwd Exam Comprehensive Diagnoses Suicide attempt by multiple drug overdose T50.912A Encounter type: initial encounter Cardiogenic shock R57.0 Acute renal failure N17.9 Acute renal failure type: unspecified
[2020-02-01] MEDS: DOPamine drip 400 MG/250 ML PREMIX 43 MG IV (14:41)
--- NOTE | 2020-02-01 14:42 | PC.NURSE ---
Dopamine IV administration record off. This nurse infused a bag at 0930 then again at 1443.
[2020-02-01] MEDS: piperacillin-tazobactam 3.375 GM in sodium chloride 0.9% (plus) 100 ML IV (14:44)
--- NOTE | 2020-02-01 14:47 | PC.NURSE ---
144 Dr Domingo on the unit to assess pt. Informed pt that all three IV sites look patent and encouraged pt to start Zosyn for IV antibiotic therapy. Pt tentatively agreed. Dr Domingo spoke with Dr Sifuentes and stated that he will assess pt and may place central line this evening.
[2020-02-01] MEDS: heparin 5,000 unit/mL INJ 1 mL 5000 UNIT SUBCUT ×2 (16:19→21:41)
[2020-02-01] MEDS: midodrine 5 mg TABLET 10 MG PO ×2 (16:19→21:39)
--- NOTE | 2020-02-01 17:34 | PC.NURSE ---
Pt complained of pain at all three IV sites. IV patent and blood pulls. Dr Sifuentes notified. Shirley Jordan, RN, Charge nurse verified IV placement and notes no concerns.
--- NOTE | 2020-02-01 17:39 | PC.NURSE ---
Pt experiencing minor hallucinations. Sees glasses, remote. Does not score high enough for meds. Pt redirects himself and tells staff of his experiences.
--- NOTE | 2020-02-01 18:43 | P.CONIM_ITS ---
Providers/Reason For Consult Consulting Physican/Specialty*: Pulmonary critical care medicine Reason for Consult*: Intentional drug overdose with cardiac arrest Attending Physician: Chayo Serrano MD History of Present Illness History of Present Illness Koko Flores is a 54 year old male who was brought to the hospital yesterday evening after suffering a cardiac arrest. According to the medical record, the patient had an intentional overdose with his home medication. After ingesting the medication and possibly alcohol the patient called his mom and drove to her place. At her place, he suffered a cardiac arrest. The EMS team put in an airway and brought him to the ER. In the ER the patient was bradycardic hypotensive which did not respond to multiple vasopressors or transcutaneous pacing. The patient was evaluated by the interventional cardiology team however the patient was hypotensive for more than 3 hours, without any cardiac activity on an echocardiogram and after discussion with the family with concerns for anoxic brain injury and poor outcome the patient was made comfort care. However, few hours later the patient's mental status improved and he was able to respond to questions with a blood pressure of 60 systolic. He was then brought down to ICU. I had evaluated the patient this morning and multiple times during the day. In the morning, the patient was able to answer questions however he had slurred speech and appeared somewhat confused. His blood pressure with dopamine and epinephrine was in the low 90s. Interestingly, he did not have any evidence of lactic acidosis or poor tissue perfusion. A bedside ultrasound performed at the time revealed small IVC. His cardiac contractility was good without any significant valvular dysfunction. During the course of the day, we were able to come down on the pressor requirements. Currently the patient is on dopamine and 5 mcg of epinephrine. His mental status has improved significantly and he is making good amount of urine suggesting renal recovery and good perfusion pressure. Review of Systems Narrative: The review of system was performed in the morning and is incomplete due to the patient's clinical condition. The patient complained of some chest pain but no shortness of breath or any other complaint. Meds/Allergies Home Medications and Allergies Home Medications Medication Instructions Recorded Confirmed Type amlodipine 10 mg PO QPM 02/01/20 02/01/20 History cetirizine 10 mg PO DAILY 02/01/20 02/01/20 History clonazepam 0.5 mg PO BID 02/01/20 02/01/20 History clonidine HCl 0.1 mg PO DAILY 02/01/20 02/01/20 History finasteride 5 mg PO DAILY 02/01/20 02/01/20 History hydrochlorothiazide 25 mg PO QAM 02/01/20 02/01/20 History ibuprofen 800 mg PO TID 02/01/20 02/01/20 History lisinopril 10 mg PO DAILY 02/01/20 02/01/20 History montelukast 10 mg PO DAILY 02/01/20 02/01/20 History propranolol 10 mg PO BID 02/01/20 02/01/20 History terazosin 10 mg PO BEDTIME 02/01/20 02/01/20 History tizanidine 4 mg PO TID PRN 02/01/20 02/01/20 History Allergies Allergy/AdvReac Type Severity Reaction Status Date / Time Unable to Assess Allergy Verified 01/31/20 23:35 Current Medications Current Medications Generic Name Dose Route Start Last Admin Trade Name Freq PRN Reason Stop Dose Admin Folic Acid 1 mg 02/01/20 09:00 02/01/20 10:44 Folic Acid PO 1 mg DAILY DANIELLE Administration Heparin Sodium (Beef Lung) 5,000 unit 02/01/20 14:30 02/01/20 16:19 Heparin SUBCUT 5,000 unit Q8H DANIELLE Administration Dopamine HCl/Dextrose 400 mg in 250 mls @ 17.01 mls/hr 02/01/20 05:15 02/01/20 14:41 Intropin Drip IV 12.64 mcg/kg/min CONT DANIELLE 43 mls/hr Administration Protocol 5 MCG/KG/MIN Sodium Chloride 1,000 mls @ 150 mls/hr 02/01/20 05:15 02/01/20 06:32 Sodium Chloride 0.9% IV 75 mls/hr .Q6H40M DANIELLE Administration Epinephrine HCl 2.5 mg/ Sodium 252.5 mls @ 0 mls/hr 02/01/20 06:45 02/01/20 12:08 Chloride IV 6 mcg/min .Q0M DANIELLE 36.4 mls/hr Administration Protocol Per Protocol Lactated Ringer's 1,000 mls @ 150 mls/hr 02/01/20 08:15 02/01/20 16:18 Lactated Ringers IV 02/01/20 21:34 150 mls/hr .Q6H40M DANIELLE Administration Midodrine 10 mg 02/01/20 15:00 02/01/20 16:19 Proamatine PO 10 mg TID DANIELLE Administration Multivitamins Therapeutic 1 tab 02/01/20 09:00 02/01/20 10:45 Multivitamin Tab PO 1 tab DAILY DANIELLE Administration Thiamine Mononitrate 100 mg 02/01/20 09:00 02/01/20 10:44 Vitamin B-1 PO 100 mg DAILY DANIELLE Administration PFSH Acute PFSH: Medical History Anxiety disorder BPH (benign prostatic hyperplasia) Vitals/I&O/Wt Last Vital Signs Pulse 57 L 02/01/20 16:00 Resp 17 02/01/20 16:00 BP 88/50 02/01/20 16:00 Pulse Ox 93 02/01/20 16:00 02/01/20 02/01/20 02/01/20 06:59 14:59 22:59 Intake Total 1592.933 / 1592.933 480.313 / 175.331 3997 / 1480.313 Output Total 1500 / 1500 2800 / 4300 Balance 1592.933 / 1592.933 -1019.687 / -1019.687 -1800 / -2819.687 Weight last 48 hrs Weight 176 lb Weight 200 lb Physical Exam Narrative: EXAM NARRATIVE: General: Patient is somewhat confused but able to answer questions HEENT: Pupil bilateral symmetric, light and accommodation reflex present, extraocular muscle movement intact Neck: No JVD Respiratory: Auscultation: Bilateral clear to auscultation both anterior and posteriorly, no crackles wheezing or rhonchi Cardiovascular: Bradycardic, regular rhythm, S1-S2 present, no murmur, no right ventricular heave, no peripheral edema. Abdomen: Soft, nontender, nondistended, positive bowel sound Musculoskeletal: No obvious joint deformity Skin: No rash Neuro: Patient is somewhat confused however able to answer questions, moving all extremities Urinary Catheter Management^: Stringer: Cath Placed During This Visit: yes Reason for Continuing Indwelling Catheter: Accurate Measurement of Urinary Output in Critically Ill Patients Urinary Catheter Date of Insertion: 01/31/20 Urinary Catheter Time of Insertion: 22:00 Data Micro: Micro: Microbiology 01/31/20 22:25 Gram Stain - Final Sputum - Endotrac heal Tube Aspirate Other Data: Other data: I have reviewed the patient's laboratory, microbiologic and radiology data. The patient has leukocytosis. He has hyponatremia with anion gap metabolic acidosis. Acute kidney injury. Chest x-ray following intubation did not reveal any infiltrate. A&P Assessment and plan (1) Drug overdose: The patient told me this morning that his blood pressure was high at home and he wanted to bring it down that is why he took a handful of blood pressure medications. According to the documentation, the patient is on amlodipine and propranolol. Both of these medications can cause bradycardia and cardiac arrest. Currently the patient's blood pressure is stable and his heart rate is above 50. I will start the patient on midodrine and I believe I will be able to titrate off the epinephrine and dopamine fairly quickly. The patient is currently on Zosyn. This can be stopped if there is no signs of infection. Status: Acute Qualifiers: Injury intent: intentional self-harm Code(s): T50.901A - Poisoning by unspecified drugs, medicaments and biological substances, accidental (unintentional), initial encounter (2) History of cardiac arrest: The patient suffered from cardiac arrest for unknown duration. Echocardiogram obtained post cardiac arrest is normal. Status: Acute Code(s): Z86.74 - Personal history of sudden cardiac arrest (3) JOVITA (acute kidney injury): The patient has nonoliguric acute kidney injury. However I believe he has a component of chronic kidney disease as well. Expect the creatinine to come down in the next couple of days. Status: Acute Code(s): N17.9 - Acute kidney failure, unspecified Coding Level of Care Code Acute Schedule Clerk for [facility] Diagnoses Drug overdose T50.901A Injury intent: intentional self-harm History of cardiac arrest Z86.74 JOVITA (acute kidney injury) N17.9 Time Spent (min) 42
--- NOTE | 2020-02-01 18:48 | PC.NURSE ---
Addendum entered by Martha Summers RN 02/01/20 18:50: Pt repeatedly educated on importance on laying flat when BP low and benefits to heart yet continued polite noncompliance. Original Note: 1800 Pt sat up to eat dinner. Tolerated well. SBP dropped to 70's. Pt tolerating well. Advised to finish bite and lay head flat again. Pt refused for approximately 10 minutes. Finally agreed to lay flat. Dr Domingo on unit toward end of conversation with pt. Witnessed continued noncompliance.
[2020-02-01] MEDS: EPINEPHrine 2.5 MG in sodium chloride 0.9% 250 ML 60 MG IV (19:00)
[2020-02-01] MEDS: piperacillin-tazobactam 3.375 GM in sodium chloride 0.9% (plus) 50 ML IV (21:40)
[2020-02-01] MEDS: EPINEPHrine 2.5 MG in sodium chloride 0.9% 250 ML 54.5 MG IV (23:17)
[2020-02-02] VITALS (23 sets, daily range): BP systolic 80–122; BP diastolic 47–84; PULSE 65–80; RESP 14–28; TEMP 36.6–36.8; O2SAT 89–99
[2020-02-02] MEDS: DOPamine drip 400 MG/250 ML PREMIX 43 MG IV (03:48)
[2020-02-02 04:26] LABS: Basophils # 0.1 10^3/uL (0.0-0.1); Basophils % 0.4 %; Hematocrit 32.4 % (42.0-52.0); Hemoglobin 11.8 g/dL (11.7-16.6); Lymphocytes # 1.2 10^3/uL (0.8-4.8); Lymphocytes % 8.1 %; Mean Corpuscular HGB Conc 36.4 g/dL (30.0-36.0); Mean Corpuscular Hemoglobin 34.3 pg (28.0-34.0); Mean Corpuscular Volume 94.2 fL (80-94); Mean Platelet Volume 10.4 fL (7.4-10.4); Monocytes # 0.8 10^3/uL (0.2-0.9); Monocytes % 5.2 %; Neutrophils # 12.4 10^3/uL (1.8-7.7); Neutrophils % 85.3 %; Nucleated Red Blood Cells % 0 %; Platelet Count 250 10^3/cmm (130-400); Red Blood Count 3.44 10^6/uL (4.1-5.3); Red Cell Distribution Width 11.5 % (12.1-15.1); White Blood Count 14.5 10^3/uL (4.0-10.0)
[2020-02-02 04:52] LABS: Alanine Aminotransferase 17 U/L (0-41); Albumin Level 3.4 g/dL (3.5-5.2); Alkaline Phosphatase 69 IU/L (40-130); Anion Gap 18.6 (5-19); Aspartate Amino Transferase 28 U/L (0-40); Blood Urea Nitrogen 19 mg/dL (6-20); Calcium 8.5 mg/dL (8.5-10.5); Carbon Dioxide 22 mmol/L (22-29); Chloride 95 mmol/L (98-107); Globulin 2.5 g/dL (1.3-4.6); Glomerular Filtration Rate 31.1 mL/min (90-130); Glucose 105 mg/dL (65-115); Osmolality Calculated 273 mOsm/kg (285-295); Sodium 133 mmol/L (136-145); Total Bilirubin 0.2 mg/dL (0.15-1.2); Total Protein 5.9 g/dL (6.6-8.7)
[2020-02-02 05:05] LABS: Potassium 2.6 mmol/L (3.5-5.1)
[2020-02-02] MEDS: sodium chloride 0.9% 1,000 ML 150 ML IV (05:52)
[2020-02-02] MEDS: heparin 5,000 unit/mL INJ 1 mL 5000 UNIT SUBCUT ×3 (06:01→15:30)
[2020-02-02] MEDS: piperacillin-tazobactam 3.375 GM in sodium chloride 0.9% (plus) 50 ML IV (06:01)
--- NOTE | 2020-02-02 08:33 | P.PN_ITS ---
Subjective Subjective: Interval history: Patient awake this morning, denies any chest pain just does report of generalized body aches. No shortness breath at rest. No fever reported overnight. Tolerating p.o. diet. Has not had a bowel movement per nursing staff. Has had no further episodes of bradycardia, AV blocks. Did not sleep well. improved urinary output Medications: Medication Review Details: Current Medications Albuterol Sulfate (Ventolin) 2 puff INHALATION Q4H.RESPIRATORY PRN PRN Reason: SHORTNESS OF BREATH Folic Acid (Folic Acid) 1 mg PO DAILY [facility] Last Admin: 02/02/20 09:16 Dose: 1 mg Documented by: Heparin Sodium (Beef Lung) (Heparin) 5,000 unit SUBCUT Q8H [facility] Last Admin: 02/02/20 06:01 Dose: 5,000 unit Documented by: Dopamine HCl/Dextrose (Intropin Drip) 400 mg in 250 mls @ 17.01 mls/hr IV CONT [facility]; Protocol Last Titration: 02/02/20 07:22 Dose: 0 mcg/kg/min, 0 mls/hr Documented by: Sodium Chloride (Sodium Chloride 0.9%) 1,000 mls @ 150 mls/hr IV .Q6H40M [facility] Last Admin: 02/02/20 05:52 Dose: 150 mls/hr Documented by: Epinephrine HCl 2.5 mg/ Sodium (Chloride) 252.5 mls @ 0 mls/hr IV .Q0M [facility]; Protocol Last Titration: 02/02/20 06:00 Dose: 0 mcg/min, 0 mls/hr Documented by: Piperacillin Sod/Tazobactam (Sod 3.375 gm/ Sodium Chloride) 50 mls @ 12.5 mls/hr IV Q8H [facility]; Protocol Last Admin: 02/02/20 06:01 Dose: 12.5 mls/hr Documented by: Lanolin (Lanolin Oint) 1 applic TOPICAL PRN PRN PRN Reason: DRYNESS Lanolin (Lanolin Oint) 1 applic TOPICAL PRN PRN PRN Reason: DRYNESS Midodrine (Proamatine) 10 mg PO TID [facility] Last Admin: 02/02/20 09:16 Dose: 10 mg Documented by: Multivitamins Therapeutic (Multivitamin Tab) 1 tab PO DAILY [facility] Last Admin: 02/02/20 09:16 Dose: 1 tab Documented by: Ondansetron HCl (Zofran) 4 mg IVP Q8H PRN PRN Reason: vomiting, or N/V if npo Potassium Chloride (Klor-Con 10) 40 meq PO Q6H [facility] Stop: 02/02/20 11:46 Last Admin: 02/02/20 06:01 Dose: 40 meq Documented by: Thiamine Mononitrate (Vitamin B-1) 100 mg PO DAILY [facility] Last Admin: 02/02/20 09:16 Dose: 100 mg Documented by: Vitals/I&O/Wt Last Vital Signs Temp 98.0 F 02/02/20 04:00 Pulse 74 02/02/20 08:31 Resp 16 02/02/20 08:31 BP 80/57 02/02/20 06:00 Pulse Ox 97 02/02/20 08:31 02/01/20 02/02/20 02/02/20 22:59 06:59 14:59 Intake Total 4099.947 / 4580.260 1323.303 / 5903.563 19.493 / 19.493 Output Total 3775 / 5275 2500 / 7775 Balance 324.947 / -694.740 -1176.697 / -1871.437 19.493 / 19.493 Weight last 48 hrs Weight 173 lb Weight 176 lb Weight 200 lb Physical Exam Const: COMMON NORMALS: no apparent distress and oriented x3 GENERAL APPEARANCE: cooperative and comfortable HENMT: COMMON NORMALS: normocephalic, head/scalp atraumatic, nasal mucous membranes and turbinates normal and oropharynx normal HEAD & SCALP: normocephalic and atraumatic NOSE: nasal mucous membranes and turbinates normal Neck/C-Spine: COMMON NORMALS: full ROM and no JVD Resp: COMMON NORMALS: normal respiratory effort, no use of accessory muscles and clear to auscultation bilaterally AUSCULTATION: clear to auscultation bilaterally Cardio: COMMON NORMALS: no JVD, S1 normal heart sound, S2 normal heart sound, no gallops and no murmurs JUGULAR VENOUS DISTENTION: no JVD HEART SOUNDS: S1 normal and S2 normal GI: COMMON NORMALS: normal to inspection, nondistended, normoactive bowel sounds, soft to palpation and no masses PALPATION: Yes soft Neuro: COMMON NORMALS: oriented x3 Urinary Catheter Management^: Stringer: Cath Placed During This Visit: yes Urethral Indwelling: Yes Reason for Continuing Indwelling Catheter: Accurate Measurement of Urinary Output in Critically Ill Patients Urinary Catheter Date of Insertion: 01/31/20 Urinary Catheter Time of Insertion: 22:00 Data : 02/02/20 03:35 02/02/20 13:36 Micro: Microbiology 01/31/20 22:25 Gram Stain - Final Sputum - Endotracheal Tube Aspirate A&P Assessment and plan (1) JOVITA (acute kidney injury): 1. We will continue IV and p.o. hydration, closely follow BUN/creatinine electrolytes. 2. We will optimize medication dosing to renal insufficiency. 3. We will monitor urine output, 4. Regarding hypokalemia, would correct potential level and recheck after supplementation. At that lab check would also check magnesium and correct as necessary.. Status: Acute Code(s): N17.9 - Acute kidney failure, unspecified (2) Anxiety disorder: 1. As above Status: Resolved Code(s): F41.9 - Anxiety disorder, unspecified (3) Nicotine abuse: 1. Continue initiation of Nicoderm patch for prevention of nicotine withdrawal, tachycardia. Status: Resolved Code(s): Z72.0 - Tobacco use Attestations Medical Necessity Statement*: Suicide attempt Cardiogenic shock Acute respiratory failure Coding Level of Care Code Acute Air Technician for [facility] Fwd Exam Detailed Diagnoses JOVITA (acute kidney injury) N17.9 Anxiety disorder F41.9 Nicotine abuse Z72.0
[2020-02-02] MEDS: albuterol 8 gm MDI 2 PUFF INHALATION ×2 (08:36→13:18)
--- NOTE | 2020-02-02 08:53 | PC.SOCIAL ---
Patient social security number is [id number] updated Sailaja Sutherland. Patient indicates he has [employer] plan insurance.
[2020-02-02] MEDS: thiamine 100 mg Tablet PO (09:16)
[2020-02-02] MEDS: midodrine 5 mg TABLET 10 MG PO ×2 (09:16→15:19)
[2020-02-02] MEDS: folic acid 1 mg Tablet PO (09:16)
[2020-02-02] MEDS: multivitamin therapeutic Tablet 1 TAB PO (09:16)
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
--- NOTE | 2020-02-02 11:59 | PM.DCS ---
Discharge Providers Date of Admission: 02/01/20 08:40 Date of Discharge: February 02, 2020 Attending Provider at Admission: Destiny Malin MD Attending Provider at Discharge: Chayo Serrano MD Diagnoses at Discharge Discharge Diagnosis (1) Suicide attempt by multiple drug overdose: Status: Acute Problem details: -patient admitted to intentional overdose on medications with intention of self-harm to family, denied to me, noted mention of atenolol, ibuprofen specifically -Initial concern for anoxic brain injury and impending given hypotension, bradycardia, hypoxia, agonal breathing and noted lack of cardiac activity following medical management and transcutaneous pacing. At this point following discussion with patient's family and medical team patient was extubated and transition to comfort measures. Several hours later patient made some recovery and was transferred to ICU with intention to aggressively manage including pressor support -Seizure/fall/aspiration precautions; withdrawal precautions, CIWA protocol -Psychiatry evaluation appreciated; d/c home -Urine tox screen negative for acetaminophen, salicylates and alcohol -One-on-one monitoring discontinued Qualifiers: Encounter type: initial encounter Qualified Code(s): T50.912A - Poisoning by multiple unspecified drugs, medicaments and biological substances, intentional self-harm, initial encounter (2) Cardiogenic shock: Status: Resolved Problem details: -Noted lack of cardiac activity initially in the ER with expectation of impending then made recovery though still required pressor support and has persistent bradycardia -Cardiology evaluation by Dr. Molina appreciated -Telemetry monitoring -hypotension and bradycardia resolved, continue to monitor vital signs closely -Echo noted with ejection fraction of 75%, no noted regional wall motion abnormalities -Troponins noted with no significant delta change -d/c fluid resuscitation, has good oral intake, more hemodynamically stable (3) JOVITA (acute kidney injury): Status: Acute Problem details: -Likely secondary to hypoperfusion from cardiogenic shock -No baseline labs available for review of medical record -Continue to monitor renal function closely, avoid nephrotoxins, renally dose meds -d/c IV fluid hydration -was initially anuric, has Stringer catheter in place, now has good urine output, will discontinue Stringer catheter (4) Anxiety disorder: Status: Chronic Qualifiers: Anxiety disorder type: unspecified anxiety disorder Qualified Code(s): F41.9 - Anxiety disorder, unspecified (5) Nicotine abuse: Status: Chronic Other Information Additional DC diagnoses/information: -continue empiric antibiotics for suspected aspiration pneumonia/pneumonitis as noted to have significant secretions during intubation process. Switch to Augmentin, first dose given here. Reason for Visit Reason for Visit: Reason For Visit: unresponsive Hospital Course Hospital Course: Patient had quite a dramatic hospital course. Initially secondary to concern for anoxic brain injury, lack of cardiac activity per bedside echo, agonal breathing, significant hypotension and bradycardia, impending was expected and as he had been intubated in the field he was extubated. However, fortunately patient made a remarkable recovery though remained hypotensive and bradycardic and was transferred to ICU for pressor support and close monitoring. He responded well to IV fluid resuscitation as well as dopamine and epinephrine all of which has been discontinued with hemodynamic stability. He was initially anuric but with improved hemodynamic status and perfusion he has had good urine output. He had Stringer catheter placement on initial admission, this has been discontinued prior to discharge. He was noted to have acute kidney injury likely due to cardiogenic shock with noted improvement in his creatinine and expectation that this will continue to improve and return to his baseline. He was evaluated by cardiology, pulmonology and psychiatry. He has been cleared for discharge home by psychiatry once medically stable. He has been tolerating oral intake without difficulty. He was noted to have significant secretions during intubation process so was covered with empiric Zosyn for possible aspiration. Had noted leukocytosis that is improving and I will continue antibiotic treatment for continued coverage for suspected aspiration pneumonia/pneumonitis. Midodrine was added which facilitated weaning off pressor support. He will continue on this with discontinuation of his oral antihypertensive regimen to allow for continued hemodynamic stability. He will be discharged home with family, is ambulatory and has been evaluated by PT. He is to follow-up with primary care provider to continue to monitor his hemodynamic status. He would likely benefit from psychiatric outpatient care though at this point he is reluctant to do this. He was noted to be hypokalemic and has been started on potassium supplementation. Discharge Summary: -Patient to follow-up with primary care provider within 1 week Physical Exam Const: COMMON NORMALS: no apparent distress and oriented x3 GENERAL APPEARANCE: cooperative and comfortable ORIENTATION/CONSCIOUSNESS: Yes awake HENMT: COMMON NORMALS: normocephalic, head/scalp atraumatic, hearing grossly normal bilaterally and moist oral mucous membranes HEAD & SCALP: normocephalic and atraumatic Eye: COMMON NORMALS: PERRL, EOMs intact bilaterally and conjunctivae normal CONJUNCTIVA: Yes conjunctivae normal PUPIL: Yes PERRL Neck/C-Spine: COMMON NORMALS: full ROM GENERAL: Yes normal visual inspection and Yes trachea midline Resp: COMMON NORMALS: normal respiratory effort, no retractions, no use of accessory muscles and clear to auscultation bilaterally EFFORT & INSPECTION: Yes able to speak in complete sentences, Yes symmetric chest movement and No tachypneic AUSCULTATION: clear to auscultation bilaterally Cardio: COMMON NORMALS: regular rhythm, S1 normal heart sound, S2 normal heart sound and no murmurs RATE: bradycardic RHYTHM: regular rhythm HEART SOUNDS: S1 normal and S2 normal GI: COMMON NORMALS: normal to inspection, nondistended, normoactive bowel sounds, soft to palpation and non-tender PALPATION: Yes soft : BLADDER/KIDNEY EXAM: Yes catheter in place Extremity: COMMON NORMALS: normal to inspection, full ROM and no clubbing, cyanosis or edema; negative for no pedal edema Neuro: COMMON NORMALS: oriented x3, moves all extremities, no focal motor deficits, no sensory deficits noted and gait normal Psych: COMMON NORMALS: mental status grossly normal, thought process normal, cooperative, affect normal and speech normal SPEECH: Yes normal speech THOUGHT PROCESS: normal thought process Skin: COMMON NORMALS: no rashes or lesions noted, no jaundice, no petechiae and no mottling GENERAL SKIN EXAM: no rashes or lesions noted Urinary Catheter Management^: Stringer: Cath Placed During This Visit: yes Urethral Indwelling: Yes Reason for Continuing Indwelling Catheter: Accurate Measurement of Urinary Output in Critically Ill Patients Urinary Catheter Date of Insertion: 01/31/20 Urinary Catheter Time of Insertion: 22:00 Discharge Data Data Completed and Pending: Completed Studies During Hospitalization Category Date Time Status XR chest 1V sid ble [id number] Stat Exams 01/31/20 21:50 Completed CV echo complete* [id number] Routine Ultrasound 02/01/20 05:27 Completed Pending at discharge Category Date Time Status Complete Blood Co unt w/Auto AM LABS Lab 02/03/20 04:00 Ordered Complete Blood Co unt w/Auto AM LABS Lab 02/04/20 04:00 Ordered Magnesium Timed Lab 02/02/20 14:00 Ordered Potassium Timed Lab 02/02/20 14:00 Ordered Sputum Culture an d Gram Stain Stat Lab 01/31/20 22:25 Results Labs from last 24 hours 02/02/20 02/02/20 02/01/20 03:35 03:35 11:42 WBC 14.5 H RBC 3.44 L Hgb 11.8 Hct 32.4 L MCV 94.2 H MCH 34.3 H MCHC 36.4 H RDW 11.5 L Plt Count 250 MPV 10.4 Neut % (Auto) 85.3 Lymph % (Auto) 8.1 [place] % (Auto) 5.2 Eos % (Auto) 0.0 Baso % (Auto) 0.4 Neut # (Auto) 12.4 H Lymph # (Auto) 1.2 [place] # (Auto) 0.8 Eos # (Auto) 0.0 Baso # (Auto) 0.1 Nucleated RBC % (a uto) 0 Nucleated RBCs # 0.0 Sodium 133 L Potassium 2.6 L* D Chloride 95 L Carbon Dioxide 22 Anion Gap 18.6 BUN 19 Creatinine 2.2 H GFR Calculation 31.1 L Glucose 105 Calculated Osmolal ity 273 L Calcium 8.5 Total Bilirubin 0.2 AST 28 ALT 17 Alkaline Phosphata se 69 Troponin I 6 Hour 21.00 H Troponin I Hi Sens Del -1.00 L Total Protein 5.9 L Albumin 3.4 L Globulin 2.5 Vitals: Last Vital Signs Temp 98.0 F 02/02/20 04:00 Pulse 80 02/02/20 10:00 Resp 20 H 02/02/20 10:00 BP 103/53 02/02/20 10:00 Pulse Ox 97 02/02/20 10:00 Discharge Plan Discharge Patient Disposition: Home, Self-Care Condition: Stable Prescriptions: New midodrine 5 mg Tablet 5 mg PO TID 30 Days Qty: 90 RF: 0 Vitamin B-1 (mononitrate) 100 mg Tablet 100 mg PO DAILY 30 Days Qty: 30 RF: 0 Thera 400 mcg Tablet 1 tab PO DAILY 30 Days Qty: 30 RF: 0 Augmentin 875-125 mg tablet 1 tab PO BID 7 Days Qty: 14 RF: 0 potassium chloride 20 mEq tablet extended release 20 meq PO BID Qty: 30 RF: 0 Continued clonazepam 0.5 mg Tablet 0.5 mg PO BID RF: 0 tizanidine 4 mg Tablet 4 mg PO TID PRN (Reason: MUSCLE SPASMS) RF: 0 cetirizine 10 mg Tablet 10 mg PO DAILY RF: 0 montelukast 10 mg Tablet 10 mg PO DAILY RF: 0 finasteride 5 mg Tablet 5 mg PO DAILY RF: 0 Discontinued lisinopril 10 mg Tablet 10 mg PO DAILY RF: 0 clonidine HCl 0.1 mg Tablet 0.1 mg PO DAILY RF: 0 propranolol 10 mg Tablet 10 mg PO BID RF: 0 ibuprofen 800 mg Tablet 800 mg PO TID RF: 0 terazosin 5 mg Capsule 10 mg PO BEDTIME RF: 0 amlodipine 5 mg Tablet 10 mg PO QPM RF: 0 hydrochlorothiazide 25 mg Tablet 25 mg PO QAM RF: 0 Discharge Orders: Discharge Order (Routine); Ordered 02/02/20 Ordered By: Chayo Serrano Referrals: Vinh Huerta APN [Referring] - 4-7 days (Post hospital discharge follow up. Will need follow up CBC, BMP) Discharge Diet: Regular Discharge Activity: Resume usual activity Discharge Attestations Time Spent in Discharge Care*: greater than 30 min Specific Discharge Activities: Specific discharge activities: educating patient, educating and/or supporting family/caregiver, discussing with pcp/other providers, discussing with manager case management/social workers/dc planners, documenting/other paperwork and evaluating patient/reviewing data Status at Discharge: Cognitive status at discharge: cognitively intact, Behavioral status at discharge: cooperative, Functional status at discharge: independent ambulation Overall status at discharge: patient is back to baseline Quality Metrics Clinical Quality Measures During this hospital stay, did patient experience: None Coding Level of Care Code [facility] [employer] [facility] Fwd Exam Comprehensive Diagnoses Suicide attempt by multiple drug overdose T50.912A Encounter type: initial encounter Cardiogenic shock R57.0 JOVITA (acute kidney injury) N17.9 Anxiety disorder F41.9 Anxiety disorder type: unspecified anxiety disorder Nicotine abuse Z72.0
[2020-02-02] MEDS: amoxicillin-clav 875-125 mg Tablet 1 TAB PO (12:51)
[2020-02-02 14:46] LABS: Magnesium 1.8 mg/dL (1.7-2.3)
[2020-02-02 14:52] LABS: Potassium 2.7 mmol/L (3.5-5.1)
== END 2020-02-02 18:00 | disposition home or self-care (01) | DRG 917 ==
LOC: ER 02-01 02:01 → MEDSURG 02-01 06:28 → ICU 02-01 06:28
PROVIDERS: Internal Medicine Cardiovascular Disease; Admitting Provider Student in an Organized Health Care Education/Training Program; Emergency Provider Family Medicine; Visit Provider Family Medicine
DX: T50.912A Poisoning by multiple unspecified drugs, medicaments and biological substances, intentional self-harm, initial encounter (principal); R57.8 Other shock; N17.9 Acute kidney failure, unspecified; I44.2 Atrioventricular block, complete; F41.9 Anxiety disorder, unspecified; F17.210 Nicotine dependence, cigarettes, uncomplicated; Y92.009 Unspecified place in unspecified non-institutional (private) residence as the place of occurrence of the external cause; R00.1 Bradycardia, unspecified; I10 Essential (primary) hypertension; Z66 Do not resuscitate; N40.0 Benign prostatic hyperplasia without lower urinary tract symptoms
CPT/HCPCS: 12345; 36415; 36600; 51702; 71045; 80053; 80307; 82803; 83735; 84132; 84443; 84484; 85025; 85610; 87070; 87205; 93005; 93010; 93306; 94002; 94640; 94799; 96372; 96374; 96375; 97161; 99284; G0378; J0171; J0330; J0461; J1265; J1610; J1644; J2001; J2405; J2543; J2704; J3490; J3535; J7030; J7050